=== PATIENT | male | born 1970 | race Caucasian/White ===

== ENCOUNTER 2019-07-13 10:29 | Emergency (ER) | payer OTHER, SELFPAY ==
[2019-07-13 10:37] VITALS: BP 154/90; PULSE 93; RESP 16; TEMP 36.7; O2SAT 99; BMI 21.7
--- NOTE | 2019-07-13 10:49 | ED_ITS ---
HPI - General Adult General Chief complaint: Extremity Injury, Upper Stated complaint: Hurt Left Shoulder Time Seen by Provider: 07/13/19 10:37 Source: patient Mode of arrival: Ambulatory Limitations: no limitations History of Present Illness HPI narrative: 49-year-old male here for evaluation of left shoulder pain. Patient states that he has had issues with his shoulders in the past. He specifically had issues with his right shoulder. He states that his left shoulder has been starting to hurt off and on for the past several weeks/months. He has not been evaluated for it. Approximately 1 week ago without any known inciting injury his left shoulder started to hurt. 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 He states this morning he reached out to flush the toilet and had an increase in pain. Related Data Previous Rx's Medication Instructions Recorded meloxicam 7.5 mg PO BID PRN #60 tab 07/13/19 Review of Systems Constitutional Constitutional: Denies fever(s) ENT Ears, Nose, Mouth, and Throat: Denies vertigo and Denies disequilibrium Musculoskeletal Musculoskeletal: Denies tingling Comments: Left shoulder pain Integumentary/Breasts Skin/Breast: Denies lesions and Denies rash Neurologic Neurologic: Denies behavioral changes, Denies vertigo, Denies tingling, Denies paresthesias and Denies disequilibrium Psychiatric Psychiatric: Denies behavioral changes Hematologic/Lymphatic Hematologic/Lymphatic: Denies easy bleeding and Denies easy bruising Patient History Medical History Healthy adult (Acute) Social History lives independently: Yes Exam Initial Vital Signs Initial Vital Signs: Vital Signs Temperature 98.1 F 07/13/19 10:37 Pulse Rate 93 H 07/13/19 10:37 Respiratory Rate 16 07/13/19 10:37 Blood Pressure 154/90 H 07/13/19 10:37 Pulse Oximetry 99 07/13/19 10:37 Const General: cooperative, comfortable and well developed Limitations: mental status not altered Resp Effort & Inspection: normal respiratory effort Cardio Pulses: radial pulses present on the left Skin Lesions: no lesions Rashes: no rashes Extrem General: capillary refill normal Other: Patient able to flex and extend the shoulder without discomfort. Able to adduct the shoulder without pain. Does specifically have pain over the insertion of the deltoid on the left with abduction. Course Vital Signs Vital signs: Vital Signs - 8 hr 07/13/19 10:37 Temperature 98.1 F Pulse Rate 93 H Respiratory Rate 16 Blood Pressure 154/90 H Pulse Oximetry 99 Medical Decision Making MDM Narrative Medical decision making narrative: Low suspicion for fracture. Feel we could hold on radiologic studies for now. His left elbow left wrist unremarkable. I do suspect this is a tendinitis of his left deltoid. He has been point tenderness over this area. Did discuss use of anti-inflammatories. Will give him a sling for comfort however he was instructed to stay out of the sling as much as possible. He was given return precautions and follow-up instructions. He expressed understanding and agreement. Discharge Plan Departure Patient Disposition: Home Clinical Impression: Deltoid tendinitis of left shoulder Instructions: DI for Shoulder Tendinopathy Activity Restrictions/Additional Instructions: Recommend use the anti-inflammatories like we discussed. You were given a sling for comfort however I recommend that you stay out of the sling as much as possible. You can ice her shoulder like we discussed. Contact her primary provider for follow-up. Return to the emergency department for any worsening symptoms Prescriptions: New meloxicam 7.5 mg tablet 7.5 mg PO BID PRN (Reason: pain) Qty: 60 RF: 0
[2019-07-13] MEDS: KETOROLAC 60 MG/2 ML VIAL 30 MG IM (11:17)
== END 2019-07-13 11:22 | disposition home or self-care (01) ==
PROVIDERS: Emergency Provider Emergency Medicine
DX: M77.9 Enthesopathy, unspecified (principal)
CPT/HCPCS: 96372; 99283; J1885